=== PATIENT | male | born 1995 | race African-American/Black ===

== ENCOUNTER 2019-08-17 22:00 | Emergency (ER) | payer OTHER ==
[~2019-08-17] VITALS: Ht 170.2 cm; Wt 80.0 kg
[2019-08-17 22:15] VITALS: BP 109/69
[2019-08-17] MEDS ORDERED: PredniSONE 20 MG TABLET PO ONE (23:00)
[2019-08-17] MEDS ORDERED: DiphenhydrAMINE HCL 25 MG CAPSULE PO ONE (23:15)
== END 2019-08-17 23:13 | disposition home or self-care (01) ==
LOC: EMS 22:00
DX: L50.9 Urticaria, unspecified (principal)
CPT/HCPCS: 99283; J7512